=== PATIENT | female | born 1975 | race Caucasian/White ===

== ENCOUNTER 2017-02-09 07:08 | Emergency (ER) | payer MEDICAID ==
[~2017-02-09] VITALS: Ht 167.6 cm; Wt 100.0 kg
[2017-02-09 08:28] LABS: CALCIUM 8.6 mg/dL (8.5-10.1); CARBON DIOXIDE 25.6 mmol/L (21-32); CHLORIDE SERUM 98 mmol/L (98-107); CREATININE SERUM 0.8 mg/dL (0.6-1.0); GFR1 > 60 mL/min; GLUCOSE SERUM 406 mg/dL (74-106); POTASSIUM SERUM 3.7 mmol/L (3.5-5.1); SODIUM SERUM 132 mmol/L (136-145)
[2017-02-09 10:50] VITALS: BP 108/65
== END 2017-02-09 10:51 | disposition home or self-care (01) ==
LOC: ED 07:08
PROVIDERS: Emergency Medicine
DX: E11.65 Type 2 diabetes mellitus with hyperglycemia (principal)
CPT/HCPCS: J1815; J7030

== ENCOUNTER 2018-08-02 10:03 | Emergency (ER) | payer MEDICAID ==
[~2018-08-02] VITALS: Ht 167.6 cm; Wt 97.3 kg
[2018-08-02 10:10] VITALS: Ht 167.6 cm; Wt 97.3 kg
[2018-08-02 10:38] LABS: BASOPHIL % 0.8 % (0-2); PLATELET COUNT 229 x10^3mcL (130-400); RED CELL DISTRIBUTION WIDTH 11.5 % (11.5-14.5)
[2018-08-02 10:42] LABS: UA SPECIFIC GRAVITY 1.015 (1.005-1.035); microscopic required? YES; urine erythrocyte 3+ (NEGATIVE)
[2018-08-02 10:44] LABS: CARBON DIOXIDE 28.8 mmol/L (21-32); CHLORIDE SERUM 98 mmol/L (98-107); CREATININE SERUM 0.7 mg/dL (0.6-1.0); GFR1 > 60 mL/min; GLUCOSE SERUM 301 mg/dL (74-106); POTASSIUM SERUM 4.1 mmol/L (3.5-5.1); SODIUM SERUM 135 mmol/L (136-145)
[2018-08-02 10:49] LABS: ALBUMIN 3.6 g/dL (3.4-5.0); ALKALINE PHOSPHATASE 110 U/L (46-116); ALT/SGPT 20 U/L (14-59); AST/SGOT 10 U/L (15-37); BILIRUBIN TOTAL 0.6 mg/dL (0.20-1.00); LIPASE 157 IU/L (73-393); TOTAL PROTEIN, SERUM 7.5 g/dL (6.4-8.2)
[2018-08-02 12:07] VITALS: BP 152/99
== END 2018-08-02 12:00 | disposition home or self-care (01) ==
LOC: ED 10:03
PROVIDERS: Emergency Medicine
DX: R10.84 Generalized abdominal pain (principal); R10.2 Pelvic and perineal pain; E11.9 Type 2 diabetes mellitus without complications
CPT/HCPCS: 87491; 87591; J1885; Q0092

== ENCOUNTER 2020-05-22 18:06 | Emergency (ER) | payer MEDICAID ==
[~2020-05-22] VITALS: Ht 167.6 cm; Wt 100.7 kg
[2020-05-22 18:39] VITALS: Ht 167.6 cm; Wt 100.7 kg
[2020-05-22 19:38] LABS: BASOPHIL % 0.5 % (0-2); PLATELET COUNT 195 x10^3mcL (130-400); RED CELL DISTRIBUTION WIDTH 12.2 % (11.5-14.5)
[2020-05-22 20:05] LABS: CALCIUM 9.4 mg/dL (8.5-10.1); CARBON DIOXIDE 26.1 mmol/L (21-32); CHLORIDE SERUM 98 mmol/L (98-107); CREATININE SERUM 0.7 mg/dL (0.6-1.0); GFR1 > 60 mL/min; GLUCOSE SERUM 293 mg/dL (74-106); POTASSIUM SERUM 3.9 mmol/L (3.5-5.1); SODIUM SERUM 134 mmol/L (136-145)
[2020-05-22 20:11] LABS: ALBUMIN 4.1 g/dL (3.4-5.0); ALKALINE PHOSPHATASE 105 U/L (46-116); ALT/SGPT 45 U/L (14-59); AST/SGOT 15 U/L (15-37); BILIRUBIN TOTAL 0.51 mg/dL (0.20-1.00); TOTAL PROTEIN, SERUM 7.8 g/dL (6.4-8.2)
[2020-05-22 20:25] LABS: microscopic required? NO
[2020-05-22 20:52] LABS: UA SPECIFIC GRAVITY 1.025 (1.005-1.035); urine erythrocyte NEGATIVE (NEGATIVE)
[2020-05-22 21:10] VITALS: BP 148/88
== END 2020-05-22 21:10 | disposition home or self-care (01) ==
LOC: ED 18:06
PROVIDERS: Specialist
DX: R10.30 Lower abdominal pain, unspecified (principal); E11.9 Type 2 diabetes mellitus without complications; R30.0 Dysuria; Z98.890 Other specified postprocedural states